=== PATIENT | female | born 1960 | race Caucasian/White ===

== ENCOUNTER → 2017-04-15 | Outpatient (REF) | payer BC ==
[2017-04-15 20:55] LABS: C REACTIVE PROTEIN QUANTITATIV 0.43 MG/DL (0.00-0.30); RHEUMATOID FACTOR QUANT < 10.0 IU/ML (0-15.0)
[2017-04-15 21:04] LABS: FOLATE 12.1 NG/ML; TOTAL 25(OH) VITAMIN D 20.2 NG/ML (30.0-100.0); VITAMIN B12 LEVEL 363 PG/ML
[2017-04-15 22:24] LABS: ERYTHROCYTE SEDIMENTATION RATE 21 mm/hr (0-30)
[2017-04-18 00:09] LABS: ANA (HEP2) Negative (.); Lyme Disease IgG/IgM Antibodie <0.91 ISR (0.00-0.90); Lyme Disease IgM Ab Quantitati <0.80 index (0.00-0.79)
== END ==
LOC: M SFHCADAM 14:40
DX: M25.552 Pain in left hip (principal); M79.675 Pain in left toe(s); G25.81 Restless legs syndrome
CPT/HCPCS: 82746

== ENCOUNTER → 2017-05-07 | Outpatient (REF) | payer BC ==
[2017-05-07 12:46] LABS: HEMATOCRIT 42.9 % (36.0-47.0); HEMOGLOBIN 14.1 g/dl (12.0-16.0); MEAN CORPUSCULAR HEMOGLOBIN 28.7 pg (27.0-33.0); MEAN CORPUSCULAR HGB CONC 32.9 g/dl (32.0-36.5); MEAN CORPUSCULAR VOLUME 87.4 fl (80.0-96.0); PLATELET COUNT, AUTOMATED 285 10^3/uL (150-450); RED BLOOD COUNT 4.91 10^6/uL (4.00-5.40); RED CELL DISTRIBUTION WIDTH 13.4 % (11.5-14.5); WHITE BLOOD COUNT 7.7 10^3/uL (4.0-10.0)
[2017-05-07 13:16] LABS: ALBUMIN 3.6 GM/DL (3.2-5.2); ALBUMIN/GLOBULIN RATIO 1.06 (1.00-1.93); ALKALINE PHOSPHATASE 65 U/L (45-117); ALT/SGPT 20 U/L (12-78); ANION GAP 7 MEQ/L (8-16); AST/SGOT 17 U/L (7-37); BLOOD UREA NITROGEN 11 MG/DL (7-18); CALCIUM LEVEL 8.8 MG/DL (8.5-10.1); CARBON DIOXIDE LEVEL 29 MEQ/L (21-32); CHLORIDE LEVEL 102 MEQ/L (98-107); CHOLESTEROL LEVEL 228 MG/DL (<200); CHOLESTEROL RISK RATIO 3.507 (<5); FREE T4 0.87 NG/DL (0.76-1.46); GLOMERULAR FILTRATION RATE > 60.0 (>51); GLUCOSE, FASTING 94 MG/DL (70-100); HDL CHOLESTEROL 65 MG/DL (>40); LDL CHOLESTEROL 127.4 MG/DL (<100); NON-HDL-C 163 MG/DL; POTASSIUM SERUM 4.7 MEQ/L (3.5-5.1); SODIUM LEVEL 138 MEQ/L (136-145); TRIGLYCERIDES LEVEL 178 MG/DL (<150)
== END ==
LOC: M SFHCADAM 08:07
DX: E66.9 Obesity, unspecified (principal); Z13.220 Encounter for screening for lipoid disorders; Z13.1 Encounter for screening for diabetes mellitus
CPT/HCPCS: 84443

== ENCOUNTER → 2017-06-03 | Outpatient (CLI) | payer BC | LOC: M ADAMS 16:35 | DX: M54.5 Low back pain (principal); G89.29 Other chronic pain | CPT/HCPCS: 72100 ==

== ENCOUNTER 2017-08-07 18:33 | Emergency (ER) | payer BC ==
[2017-08-07] MEDS ORDERED: ISOVUE-370 76% 100ML VIAL (Q9967) As Ordered (19:15)
[2017-08-07 20:04] LABS: INR 0.87; PROTHROMBIN TIME 11.9 SECONDS (12.4-14.5)
[2017-08-07 20:17] LABS: CPK CREATINE PHOSPHOKINASE 100 U/L (26-192); TROPONIN I < 0.02 NG/ML (< 0.10)
[2017-08-07 20:18] LABS: CK-MB VALUE MASS 1.2 NG/ML (<3.6); NT-PRO BNP 142 PG/ML (<125)
== END 2017-08-07 20:53 | disposition home or self-care (01) ==
LOC: M ED 18:33
DX: R06.00 Dyspnea, unspecified (principal); R60.9 Edema, unspecified; J45.909 Unspecified asthma, uncomplicated; Z79.899 Other long term (current) drug therapy; Z88.5 Allergy status to narcotic agent; Z88.8 Allergy status to other drugs, medicaments and biological substances
CPT/HCPCS: Q9967

== ENCOUNTER → 2017-08-07 | Outpatient (CLI) | payer BC | LOC: M ADAMS 09:13 | DX: R60.0 Localized edema (principal); I83.893 Varicose veins of bilateral lower extremities with other complications | CPT/HCPCS: 71046 ==

== ENCOUNTER → 2017-08-07 | Outpatient (REF) | payer BC ==
[2017-08-07 10:29] LABS: HEMOGLOBIN 13.2 g/dl (12.0-15.5); MEAN CORPUSCULAR HEMOGLOBIN 29.6 pg (27.0-33.0); MEAN CORPUSCULAR HGB CONC 33.8 g/dl (32.0-36.5); MEAN CORPUSCULAR VOLUME 87.4 fl (80.0-96.0); PLATELET COUNT, AUTOMATED 248 10^3/uL (150-450); RED BLOOD COUNT 4.46 10^6/uL (4.00-5.40); RED CELL DISTRIBUTION WIDTH 13.7 % (11.5-14.5); WHITE BLOOD COUNT 8.1 10^3/uL (4.0-10.0)
[2017-08-07 10:41] LABS: D-DIMER QUANT 746.7 ng/ml (<500)
[2017-08-07 10:57] LABS: ALBUMIN 3.5 GM/DL (3.2-5.2); ALBUMIN/GLOBULIN RATIO 0.95 (1.00-1.93); ALKALINE PHOSPHATASE 67 U/L (45-117); ALT/SGPT 24 U/L (12-78); ANION GAP 7 MEQ/L (8-16); AST/SGOT 21 U/L (7-37); BILIRUBIN,TOTAL 0.6 MG/DL (0.2-1.0); BLOOD UREA NITROGEN 9 MG/DL (7-18); CALCIUM LEVEL 8.6 MG/DL (8.5-10.1); CARBON DIOXIDE LEVEL 27 MEQ/L (21-32); CHLORIDE LEVEL 106 MEQ/L (98-107); CPK CREATINE PHOSPHOKINASE 103 U/L (26-192); CREATININE FOR GFR 0.68 MG/DL (0.55-1.30); FREE T4 0.92 NG/DL (0.76-1.46); GLOMERULAR FILTRATION RATE > 60.0 (>51); GLUCOSE, FASTING 86 MG/DL (70-100); POTASSIUM SERUM 4.2 MEQ/L (3.5-5.1); SODIUM LEVEL 140 MEQ/L (136-145); TOTAL PROTEIN 7.2 GM/DL (6.4-8.2); TROPONIN I < 0.02 NG/ML (< 0.10)
[2017-08-07 11:03] LABS: NT-PRO BNP 160 PG/ML (<125)
== END ==
LOC: M SFHCADAM 09:09
DX: R60.0 Localized edema (principal); I83.893 Varicose veins of bilateral lower extremities with other complications; R06.09 Other forms of dyspnea
CPT/HCPCS: 82550

== ENCOUNTER → 2017-08-14 | Outpatient (CLI) | payer BC | LOC: M CARPUL 11:18 | DX: R60.0 Localized edema (principal); R06.09 Other forms of dyspnea | CPT/HCPCS: 93306 ==

== ENCOUNTER 2017-09-01 11:18 | Day surgery (SDC) | payer BC ==
[2017-09-01] MEDS ORDERED: fentaNYL 100 MCG/2 ML INJECTION (J3010) As Ordered (11:24)
[2017-09-01] MEDS ORDERED: PROPOFOL 200 MG/20 ML VIAL As Ordered (11:24)
[2017-09-01] MEDS ORDERED: LIDOCAINE 2% INJ 100 MG/5 ML SDV (FOR ANES.) As Ordered (11:24)
[2017-09-01] MEDS: NS 1,000 ML IV (11:33)
[2017-09-01] MEDS ORDERED: SEVOFLURANE INHAL SOLN 250 ML BTL As Ordered (15:27)
== END 2017-09-01 13:27 | disposition home or self-care (01) ==
LOC: M OPP 11:18
DX: K21.0 Gastro-esophageal reflux disease with esophagitis (principal); K22.8 Other specified diseases of esophagus; K29.70 Gastritis, unspecified, without bleeding; J45.909 Unspecified asthma, uncomplicated; Z79.899 Other long term (current) drug therapy; Z88.8 Allergy status to other drugs, medicaments and biological substances; Z98.51 Tubal ligation status; Z86.79 Personal history of other diseases of the circulatory system; Z80.3 Family history of malignant neoplasm of breast
CPT/HCPCS: 43239

== ENCOUNTER 2017-09-17 06:51 | Day surgery (SDC) | payer BC ==
[2017-09-17] MEDS ORDERED: LIDOCAINE 1% MDV 20ML VIAL SQ (07:30)
[2017-09-17] MEDS: LR 1,000 ML IV (08:00)
[2017-09-17] MEDS ORDERED: MIDAZOLAM INJ 2 MG/2 ML VIAL (J2250) As Ordered (08:13)
[2017-09-17] MEDS ORDERED: fentaNYL 100 MCG/2 ML INJECTION (J3010) As Ordered (08:13)
[2017-09-17] MEDS ORDERED: PROPOFOL 200 MG/20 ML VIAL As Ordered ×3 (08:14)
[2017-09-17] MEDS: dexameTHASONE 4 MG/ML 1ML VIAL (J1100) As Ordered (08:19)
[2017-09-17] MEDS: BUPIVACAINE HCL 0.25% 30 ML VIAL As Ordered (08:19)
[2017-09-17] MEDS ORDERED: ONDANSETRON 4MG/2ML VIAL (J2405) As Ordered (08:20)
[2017-09-17] MEDS ORDERED: METOCLOPRAMIDE INJ 10MG/2ML VIAL (J2765) As Ordered (08:20)
[2017-09-17] MEDS ORDERED: dexameTHASONE 4 MG/ML 1ML VIAL (J1100) As Ordered (08:20)
[2017-09-17] MEDS ORDERED: KETAMINE HCL 200 MG/20 ML VIAL As Ordered (09:18)
[2017-09-17] MEDS: LIDOCAINE 1% SDV INJ 30 ML VIAL As Ordered (09:33)
[2017-09-17] MEDS: BUPIVACAINE HCL 0.5% 30 ML VIAL As Ordered (09:33)
== END 2017-09-17 11:30 | disposition home or self-care (01) ==
LOC: M SDC 06:51
DX: M20.22 Hallux rigidus, left foot (principal); K44.9 Diaphragmatic hernia without obstruction or gangrene; J45.909 Unspecified asthma, uncomplicated; Z79.899 Other long term (current) drug therapy; Z88.8 Allergy status to other drugs, medicaments and biological substances
CPT/HCPCS: 28289

== ENCOUNTER 2018-02-14 04:04 | Emergency (ER) | payer BC ==
[2018-02-14] MEDS: ONDANSETRON 4MG/2ML VIAL (J2405) IV (05:30)
[2018-02-14] MEDS: KETOROLAC 30 MG/ML VIAL (J1885) IV (05:30)
[2018-02-14] MEDS: METHOCARBAMOL 1,000 MG/10 ML VIAL (J2800) IV (05:30)
[2018-02-14] MEDS: MORPHINE 4 MG/ML 1ML VIAL/SYRINGE (J2270) IV (05:31)
[2018-02-14] MEDS: OXYCODONE/APAP 5MG/325MG(BULK FOR ED) 1 TABLET PO (06:24)
== END 2018-02-14 06:28 | disposition home or self-care (01) ==
LOC: M ED 04:04
DX: M54.2 Cervicalgia (principal); S46.812A Strain of other muscles, fascia and tendons at shoulder and upper arm level, left arm, initial encounter; X58.XXXA Exposure to other specified factors, initial encounter; Y92.89 Other specified places as the place of occurrence of the external cause; Z79.899 Other long term (current) drug therapy; Z88.3 Allergy status to other anti-infective agents
CPT/HCPCS: J2270

== ENCOUNTER 2018-02-20 09:28 | Day surgery (SDC) | payer BC ==
[2018-02-20] MEDS: NS 1,000 ML IV (10:51)
[2018-02-20] MEDS ORDERED: LIDOCAINE 2% INJ 100 MG/5 ML SDV (FOR ANES.) As Ordered (11:00)
[2018-02-20] MEDS ORDERED: PROPOFOL 200 MG/20 ML VIAL As Ordered ×2 (11:00)
[2018-02-20] MEDS ORDERED: fentaNYL 100 MCG/2 ML INJECTION (J3010) As Ordered (12:13)
== END 2018-02-20 13:33 | disposition home or self-care (01) ==
LOC: M OPP 09:28
DX: K21.0 Gastro-esophageal reflux disease with esophagitis (principal); K22.8 Other specified diseases of esophagus; K29.70 Gastritis, unspecified, without bleeding; J45.909 Unspecified asthma, uncomplicated; R12 Heartburn; M19.90 Unspecified osteoarthritis, unspecified site; Z98.890 Other specified postprocedural states; Z79.899 Other long term (current) drug therapy; Z88.5 Allergy status to narcotic agent; Z88.8 Allergy status to other drugs, medicaments and biological substances; Z88.1 Allergy status to other antibiotic agents; Z80.3 Family history of malignant neoplasm of breast
CPT/HCPCS: 91035

== ENCOUNTER → 2018-08-27 | Outpatient (REF) | payer BC ==
[~2018-08-27] MED LIST: ALBU0.63; CYCL10TA PO; HYDR-3713 PO; KETO10TAB PO; OMEP40CA2; OXYC1TAB23 PO; PANT40TA3 PO; ROBA500T PO; ROPI0.5T; SUMA25TA3; TIZA4CAP PO; VALA1TAB2; VITA50005
[2018-08-27 12:47] LABS: HEMATOCRIT 46.5 % (36.0-47.0); HEMOGLOBIN 15.3 g/dl (12.0-15.5); MEAN CORPUSCULAR HEMOGLOBIN 29.7 pg (27.0-33.0); MEAN CORPUSCULAR HGB CONC 32.9 g/dl (32.0-36.5); MEAN CORPUSCULAR VOLUME 90.3 fl (80.0-96.0); PLATELET COUNT, AUTOMATED 278 10^3/uL (150-450); RED BLOOD COUNT 5.15 10^6/uL (4.00-5.40); WHITE BLOOD COUNT 7.5 10^3/uL (4.0-10.0)
[2018-08-27 12:50] LABS: ALBUMIN 3.8 GM/DL (3.2-5.2); ALT/SGPT 28 U/L (12-78); BILIRUBIN,TOTAL 0.9 MG/DL (0.2-1.0); BLOOD UREA NITROGEN 15 MG/DL (7-18); CALCIUM LEVEL 8.7 MG/DL (8.5-10.1); CARBON DIOXIDE LEVEL 30 MEQ/L (21-32); CHLORIDE LEVEL 103 MEQ/L (98-107); CHOLESTEROL LEVEL 292 MG/DL (<200); CHOLESTEROL RISK RATIO 4.949 (<5); CREATININE FOR GFR 0.76 MG/DL (0.55-1.30); FREE T4 0.91 NG/DL (0.76-1.46); GLOMERULAR FILTRATION RATE > 60.0 (>51); GLUCOSE, FASTING 96 MG/DL (70-100); HDL CHOLESTEROL 59 MG/DL (>40); LDL CHOLESTEROL 174 MG/DL (<100); NON-HDL-C 233 MG/DL; POTASSIUM SERUM 4.8 MEQ/L (3.5-5.1); SODIUM LEVEL 138 MEQ/L (136-145); TOTAL PROTEIN 7.4 GM/DL (6.4-8.2); TRIGLYCERIDES LEVEL 296 MG/DL (<150)
== END ==
LOC: M SFHCADAM 10:01
PROVIDERS: ATTEND Physician Assistant
DX: E78.5 Hyperlipidemia, unspecified (principal); G25.81 Restless legs syndrome; K21.9 Gastro-esophageal reflux disease without esophagitis; J45.20 Mild intermittent asthma, uncomplicated

== ENCOUNTER 2018-10-29 14:25 | Emergency (ER) | payer BC ==
[~2018-10-29] VITALS: Ht 160 cm; Wt 93.6 kg
[2018-10-29] MEDS ORDERED: AZIT-12 (14:51)
[2018-10-29] MEDS ORDERED: PROM25TA12 (14:51)
[2018-10-29] MEDS ORDERED: CEFU1TAB22 (14:51)
[2018-10-29] MEDS ORDERED: IPRATROPIUM 0.5MG/ALBUTEROL 2.5MG INH SOL UD 3ML (DUONEB)(J7620) NEB ONE (16:30)
--- NOTE | 2018-10-29 16:57 | REP ---
CHEST, TWO VIEWS: HISTORY: Cough. COMPARISON: 08/07/2017 The lungs are clear. The heart is normal in size. The pulmonary vasculature is normal in appearance. The bony structure is intact. IMPRESSION: No acute disease. Electronically Signed by Adelso Cha MD 10/29/2018 05:35 P
[2018-10-29] MEDS ORDERED: IPRA0.00 NEB (17:31)
[2018-10-29] MEDS ORDERED: HYDR5LIQ2 PO (17:31)
[2018-10-29] MEDS ORDERED: MUCI600T31 PO (17:31)
[2018-10-29 18:06] VITALS: BP 142/89
== END 2018-10-29 18:08 | disposition home or self-care (01) ==
LOC: M ED 14:25
DX: J45.901 Unspecified asthma with (acute) exacerbation (principal); K21.9 Gastro-esophageal reflux disease without esophagitis; Z88.5 Allergy status to narcotic agent; Z88.3 Allergy status to other anti-infective agents; Z79.899 Other long term (current) drug therapy; Z79.2 Long term (current) use of antibiotics

== ENCOUNTER → 2019-04-22 | Outpatient (REF) | payer BC, OTHER ==
[~2019-04-22] MED LIST changes: +AZIT-12; +CEFU1TAB22; +HYDR5LIQ2 PO; +IPRA0.00 NEB; +MUCI600T31 PO; -OMEP40CA2; +OMEP40CA97; +PROM25TA12; -ROPI0.5T; +ROPI0.5T3; -VALA1TAB2; +VALA1TAB5
[2019-04-22 13:34] LABS: HEMATOCRIT 44.6 % (36.0-47.0); HEMOGLOBIN 14.7 g/dl (12.0-15.5); MEAN CORPUSCULAR HEMOGLOBIN 29.1 pg (27.0-33.0); MEAN CORPUSCULAR VOLUME 88.3 fl (80.0-96.0); PLATELET COUNT, AUTOMATED 318 10^3/uL (150-450); RED BLOOD COUNT 5.05 10^6/uL (4.00-5.40); WHITE BLOOD COUNT 5.7 10^3/uL (4.0-10.0)
[2019-04-22 13:37] LABS: C REACTIVE PROTEIN QUANTITATIV 0.32 MG/DL (0.00-0.30); RHEUMATOID FACTOR QUANT < 10.0 IU/ML (<15.0)
[2019-04-22 13:47] LABS: ALBUMIN 3.9 GM/DL (3.2-5.2); ALT/SGPT 20 U/L (12-78); BILIRUBIN,TOTAL 0.6 MG/DL (0.2-1.0); BLOOD UREA NITROGEN 10 MG/DL (7-18); CARBON DIOXIDE LEVEL 31 MEQ/L (21-32); CHLORIDE LEVEL 104 MEQ/L (98-107); CREATININE FOR GFR 0.75 MG/DL (0.55-1.30); GLOMERULAR FILTRATION RATE > 60.0 (>51); GLUCOSE, FASTING 89 MG/DL (70-100); POTASSIUM SERUM 4.6 MEQ/L (3.5-5.1); SODIUM LEVEL 139 MEQ/L (136-145); TOTAL PROTEIN 7.4 GM/DL (6.4-8.2)
[2019-04-22 13:48] LABS: FOLATE 13.8 NG/ML; TOTAL 25(OH) VITAMIN D 19.8 NG/ML (30.0-100.0); VITAMIN B12 LEVEL 342 PG/ML
[2019-04-24 00:06] LABS: ANA (HEP2) Negative (.); Lyme Disease IgG/IgM Antibodie <0.91 ISR (0.00-0.90); Lyme Disease IgM Ab Quantitati <0.80 index (0.00-0.79)
== END ==
LOC: M SFHCADAM 08:57
PROVIDERS: ATTEND Physician Assistant
DX: M13.0 Polyarthritis, unspecified (principal); M25.561 Pain in right knee

== ENCOUNTER → 2019-04-22 | Outpatient (CLI) | payer OTHER ==
[~2019-04-22] MED LIST changes: +ROPI0.5T; -ROPI0.5T3; -VALA1TAB5; +VALA1TAB64
--- NOTE | 2019-04-23 02:14 | REP ---
Clinical: Medial knee pain without trauma Technique: AP, lateral, bilateral oblique and sunrise views right knee . Findings: The osseous structures and joint spaces are intact and normal. There is no evidence for acute fracture or dislocation. No joint effusion is appreciated. Surrounding soft tissues are unremarkable. No subcutaneous emphysema or radiodense foreign body. Impression: Normal examination. No acute fracture or dislocation. Electronically Signed by Steven Jonas MD 04/23/2019 02:05 A
== END ==
LOC: M ADAMS 09:22
PROVIDERS: ATTEND Physician Assistant
DX: M25.561 Pain in right knee (principal)

== ENCOUNTER → 2019-05-25 | Outpatient (REF) | payer BC, OTHER ==
[~2019-05-25] MED LIST changes: -ROPI0.5T; +ROPI0.5T3; +VALA1TAB5; -VALA1TAB64
== END ==
LOC: M SFHCADAM 09:35
PROVIDERS: ATTEND Physician Assistant
DX: R39.15 Urgency of urination (principal)

== ENCOUNTER → 2019-09-06 | Outpatient (REF) | payer BC ==
[~2019-09-06] MED LIST changes: +CYCL-707 PO; -CYCL10TA PO; +PANT40TA29 PO; -PANT40TA3 PO
[2019-09-06 18:43] LABS: APPEARANCE, URINE CLEAR (CLEAR); BACTERIA, URINE AUTO NEGATIVE (NEGATIVE); BILIRUBIN, URINE AUTO NEGATIVE (NEGATIVE); BLOOD, URINE BLOOD NEGATIVE (NEGATIVE); COLOR, URINE YELLOW (YELLOW); GLUCOSE, URINE (UA) AUTO NEGATIVE (NEGATIVE); KETONE, URINE AUTO NEGATIVE (NEGATIVE); LEUKOCYTE ESTERASE, URINE AUTO NEGATIVE (NEGATIVE); NITRITE, URINE AUTO NEGATIVE (NEGATIVE); PROTEIN, URINE AUTO NEGATIVE (NEGATIVE); RBC, URINE AUTO 1 /HPF (0-3); SPECIFIC GRAVITY URINE AUTO 1.013 (1.002-1.035); SQUAMOUS EPITHELIAL CELL UR AU 0 /HPF (0-6); UROBILINOGEN, URINE AUTO 0.2 mg/dL (0.0-2.0); WBC, URINE AUTO 1 /HPF (0-3)
== END ==
LOC: M SMT 16:43
PROVIDERS: ATTEND Nurse Practitioner Women's Health
DX: R39.15 Urgency of urination (principal)

== ENCOUNTER → 2019-09-13 | Outpatient (CLI) | payer BC ==
--- NOTE | 2019-09-13 17:12 | REP ---
RENAL AND BLADDER ULTRASOUND: RENAL ULTRASOUND: Real-time sonographic evaluation of the kidneys performed. The kidneys are normal in size and echotexture, right kidney measures 1.2 x 4.8 x 4.6 cm and the left kidney 11.4 x 4.5 x 6.2 cm. There is no hydronephrosis bilaterally. There is a cyst in the upper pole of the right kidney 2.1 x 2.4 x 2.6 cm. With duplex Doppler evaluation the resistive index of the right kidney is 0.65 and left kidney 0.61. IMPRESSION: Cyst upper pole of the right kidney 2.6 cm maximally. No hydronephrosis. BLADDER ULTRASOUND: Real-time sonographic evaluation of the urinary bladder performed. Bladder measures 14.1 x 9.4 x 5.9 cm for a total volume of 510 mL. There is mild postvoid residual of 19 mL. No bladder mass or calculus is seen. There are bilateral ureteral jets in the urinary bladder with Doppler color evaluation. IMPRESSION: Unremarkable bladder ultrasound except for minimal post void residual.
== END ==
LOC: M WHC 13:29
PROVIDERS: ATTEND Nurse Practitioner Women's Health
DX: R39.15 Urgency of urination (principal); R35.0 Frequency of micturition; N39.0 Urinary tract infection, site not specified; N28.1 Cyst of kidney, acquired

== ENCOUNTER → 2020-06-16 | Outpatient (REF) | payer BC ==
[2020-06-16 12:35] LABS: HEMATOCRIT 42.7 % (36.0-47.0); HEMOGLOBIN 14.1 g/dl (12.0-15.5); MEAN CORPUSCULAR HEMOGLOBIN 29.3 pg (27.0-33.0); MEAN CORPUSCULAR VOLUME 88.8 fl (80.0-96.0); PLATELET COUNT, AUTOMATED 253 10^3/uL (150-450); RED BLOOD COUNT 4.81 10^6/uL (4.00-5.40); WHITE BLOOD COUNT 5.9 10^3/uL (4.0-10.0)
[2020-06-16 12:58] LABS: ALBUMIN 3.9 GM/DL (3.2-5.2); ALT/SGPT 30 U/L (12-78); BILIRUBIN,TOTAL 0.5 MG/DL (0.2-1.0); BLOOD UREA NITROGEN 11 MG/DL (7-18); CALCIUM LEVEL 9.1 MG/DL (8.5-10.1); CARBON DIOXIDE LEVEL 30 MEQ/L (21-32); CHLORIDE LEVEL 103 MEQ/L (98-107); CHOLESTEROL LEVEL 261 MG/DL (<200); CHOLESTEROL RISK RATIO 3.782 (<5); CREATININE FOR GFR 0.74 MG/DL (0.55-1.30); FREE T4 0.94 NG/DL (0.76-1.46); GLOMERULAR FILTRATION RATE > 60.0 (>51); GLUCOSE, FASTING 106 MG/DL (70-100); HDL CHOLESTEROL 69 MG/DL (>40); LDL CHOLESTEROL 148 MG/DL (<100); MAGNESIUM LEVEL 2.1 MG/DL (1.8-2.4); NON-HDL-C 192 MG/DL; POTASSIUM SERUM 4.4 MEQ/L (3.5-5.1); SODIUM LEVEL 139 MEQ/L (136-145); TOTAL PROTEIN 7.2 GM/DL (6.4-8.2); TRIGLYCERIDES LEVEL 220 MG/DL (<150)
[2020-06-16 12:59] LABS: VITAMIN B12 LEVEL 385 PG/ML
[2020-06-16 13:13] LABS: FOLATE > 24.0 NG/ML
== END ==
LOC: M SFHCADAM 09:39
PROVIDERS: ATTEND Physician Assistant
DX: K21.9 Gastro-esophageal reflux disease without esophagitis (principal); E78.00 Pure hypercholesterolemia, unspecified; M79.605 Pain in left leg

== ENCOUNTER → 2020-07-12 | Outpatient (REF) | payer BC | LOC: M LAB REF 17:10 | PROVIDERS: ATTEND Physician Assistant | DX: D49.2 Neoplasm of unspecified behavior of bone, soft tissue, and skin (principal) ==

== ENCOUNTER → 2020-08-01 | Outpatient (REF) | payer BC | LOC: M LAB REF 16:07 | PROVIDERS: ATTEND Dermatology | DX: D22.61 Melanocytic nevi of right upper limb, including shoulder (principal) ==

== ENCOUNTER 2021-03-08 08:33 | Emergency (ER) | payer BC ==
[~2021-03-08] VITALS: Ht 160 cm; Wt 98.7 kg
[~2021-03-08 08:33] MED LIST changes: +OMEP40CA4; -OMEP40CA97
[2021-03-08] MEDS ORDERED: MELO7.5T35 (08:42)
[2021-03-08] MEDS ORDERED: predniSONE 20 MG TAB PO ONE (08:55)
--- NOTE | 2021-03-08 09:16 | REP ---
INDICATION: sob. COMPARISON: 10/29/2018 THE LATEST PRIOR TECHNIQUE: PORTABLE FINDINGS: The technique utilized in obtaining the radiograph has magnified the cardiac silhouette and accentuated the interstitial markings. The cardiomediastinal silhouette is within normal limits. The heart is not enlarged. Lung ivy are clear. The pleural angles are sharp. The osseous structures are stable and intact. IMPRESSION: No acute cardiopulmonary disease. <Electronically signed by David Walsh > 03/08/21 [id number]
[2021-03-08] MEDS ORDERED: PRED20TA PO (10:09)
[2021-03-08] MEDS ORDERED: HYDR-3713 PO (10:09)
[2021-03-08 11:03] VITALS: BP 153/86
--- NOTE | 2021-03-08 16:45 | ECGEPIP ---
[facility] - ED Test Date: 2021-03-08 Pat Name: QUYEN DOBBINS Department: Room: - Gender: Female Billing Services Manager: MARYBETH : 1960 Requested By: Edna Leahy Order Number: [id number] Reading MD: Ron Linder Measurements Intervals [place] Rate: 79 P: 22 DE: 162 QRS: -23 QRSD: 82 T: 54 QT: 404 QTc: 463 Interpretive Statements Normal sinus rhythm POOR R WAVE PROGRESSION NO PRIORS FOR COMPARISON Electronically Signed on 03-08-2021 16:44:41 EST by Ron Linder
== END 2021-03-08 11:31 | disposition home or self-care (01) ==
LOC: M ED 08:33
DX: J45.901 Unspecified asthma with (acute) exacerbation (principal); B34.1 Enterovirus infection, unspecified; Z88.1 Allergy status to other antibiotic agents; Z88.5 Allergy status to narcotic agent; Z88.8 Allergy status to other drugs, medicaments and biological substances
CPT/HCPCS: 71045; 87798; 93005; 99284; J7512

== ENCOUNTER 2021-03-21 17:04 | Emergency (ER) | payer BC ==
[~2021-03-21] VITALS: Ht 160 cm; Wt 98.2 kg
[~2021-03-21 17:04] MED LIST changes: +MELO7.5T35; +PRED20TA PO
[2021-03-21 17:05] VITALS: BP 163/77
== END 2021-03-21 18:24 | disposition left against medical advice (07) ==
LOC: M ED 17:04
DX: Z53.29 Procedure and treatment not carried out because of patient's decision for other reasons (principal)

== ENCOUNTER → 2021-08-02 | Outpatient (CLI) | payer BC ==
[2021-08-02 13:56] LABS: HEMATOCRIT 44.8 % (36.0-47.0); HEMOGLOBIN 14.6 g/dl (12.0-15.5); MEAN CORPUSCULAR HGB CONC 32.6 g/dl (32.0-36.5); MEAN CORPUSCULAR VOLUME 88.9 fl (80.0-96.0); PLATELET COUNT, AUTOMATED 241 10^3/uL (150-450); RED BLOOD COUNT 5.04 10^6/uL (4.00-5.40); WHITE BLOOD COUNT 7.8 10^3/uL (4.0-10.0)
[2021-08-02 14:24] LABS: ALBUMIN 3.5 GM/DL (3.2-5.2); ALT/SGPT 25 U/L (12-78); BILIRUBIN,TOTAL 0.7 MG/DL (0.2-1.0); BLOOD UREA NITROGEN 13 MG/DL (7-18); CALCIUM LEVEL 9.2 MG/DL (8.5-10.1); CARBON DIOXIDE LEVEL 30 MEQ/L (21-32); CHLORIDE LEVEL 104 MEQ/L (98-107); CHOLESTEROL LEVEL 293 MG/DL (<200); CREATININE FOR GFR 0.81 MG/DL (0.55-1.30); GLOMERULAR FILTRATION RATE > 60.0 (>51); GLUCOSE, FASTING 100 MG/DL (70-100); HDL CHOLESTEROL 63 MG/DL (>40); LDL CHOLESTEROL 162 MG/DL (<100); NON-HDL-C 230 MG/DL; POTASSIUM SERUM 4.9 MEQ/L (3.5-5.1); SODIUM LEVEL 138 MEQ/L (136-145); TRIGLYCERIDES LEVEL 338 MG/DL (<150)
== END ==
LOC: M PLALAB 10:48
PROVIDERS: ATTEND Family Medicine
DX: E78.00 Pure hypercholesterolemia, unspecified (principal)

== ENCOUNTER → 2021-08-14 | Outpatient (POV) | payer BC ==
[~2021-08-14] VITALS: Ht 160 cm; Wt 100.0 kg
[2021-08-14 08:00] VITALS: BP 140/78
== END ==
LOC: M IRPOV 07:52
PROVIDERS: ATTEND Radiology Diagnostic Radiology
DX: I83.893 Varicose veins of bilateral lower extremities with other complications (principal); Z88.1 Allergy status to other antibiotic agents; Z88.5 Allergy status to narcotic agent

== ENCOUNTER → 2021-08-31 | Outpatient (CLI) | payer BC | LOC: M RAD 11:16 | PROVIDERS: ATTEND Radiology Diagnostic Radiology | DX: I83.90 Asymptomatic varicose veins of unspecified lower extremity (principal) ==

== ENCOUNTER → 2022-01-29 | Outpatient (CLI) | payer BC | LOC: M WHC 06:57 | PROVIDERS: ATTEND Family Medicine | DX: Z12.31 Encounter for screening mammogram for malignant neoplasm of breast (principal) ==

== ENCOUNTER → 2022-02-03 | Outpatient (CLI) | payer BC | LOC: M LABSMTC 10:51 | PROVIDERS: ATTEND Anesthesiology | DX: Z11.52 Encounter for screening for COVID-19 (principal) ==

== ENCOUNTER → 2022-02-07 | Outpatient (CLI) | payer BC ==
[~2022-02-07] MED LIST changes: +LIDOCAINE 1% MDV 20ML VIAL As Ordered ONE; +LIDOCAINE 2% MDV 20ML VIAL As Ordered ONE; +MIDAZOLAM INJ 2MG/2ML VIAL (J2250 PER 1MG) As Ordered ONE; +NS 1,000 ML IV SCH; +diphenhydrAMINE 50MG/ML VIAL As Ordered ONE; +fentaNYL 100 MCG/2 ML INJECTION As Ordered ONE
[2022-02-07 12:15] VITALS: BP 114/50
== END ==
LOC: M IRPRO 09:32
PROVIDERS: ATTEND Radiology Diagnostic Radiology
DX: I83.811 Varicose veins of right lower extremity with pain (principal); I83.891 Varicose veins of right lower extremity with other complications; I87.2 Venous insufficiency (chronic) (peripheral)
CPT/HCPCS: 36465; 99152; 99153; J1200; J2250; J3010

== ENCOUNTER 2022-02-20 10:47 | Emergency (ER) | payer BC ==
[~2022-02-20] VITALS: Ht 160 cm; Wt 88.1 kg
[2022-02-20 10:47] VITALS: BP 148/74
== END 2022-02-20 13:56 | disposition left against medical advice (07) ==
LOC: M ED 10:47
DX: Z53.21 Procedure and treatment not carried out due to patient leaving prior to being seen by health care provider (principal)

== ENCOUNTER → 2022-02-20 | Outpatient (CLI) | payer BC ==
[~2022-02-20] MED LIST changes: -LIDOCAINE 1% MDV 20ML VIAL As Ordered ONE; -LIDOCAINE 2% MDV 20ML VIAL As Ordered ONE; -MIDAZOLAM INJ 2MG/2ML VIAL (J2250 PER 1MG) As Ordered ONE; -NS 1,000 ML IV SCH; -diphenhydrAMINE 50MG/ML VIAL As Ordered ONE; -fentaNYL 100 MCG/2 ML INJECTION As Ordered ONE
== END ==
LOC: M RAD 10:02
PROVIDERS: ATTEND Radiology Diagnostic Radiology
DX: I87.8 Other specified disorders of veins (principal)

== ENCOUNTER → 2022-02-26 | Outpatient (POV) | payer BC ==
[~2022-02-26] VITALS: Ht 160 cm; Wt 88.6 kg
[2022-02-26 13:25] VITALS: BP 136/73
== END ==
LOC: M IRPOV 13:00
PROVIDERS: ATTEND Radiology Diagnostic Radiology
DX: I83.12 Varicose veins of left lower extremity with inflammation (principal); Z88.1 Allergy status to other antibiotic agents; Z88.5 Allergy status to narcotic agent; Z88.8 Allergy status to other drugs, medicaments and biological substances

== ENCOUNTER → 2022-03-29 | Outpatient (CLI) | payer BC | LOC: M RAD 06:22 | PROVIDERS: ATTEND Radiology Diagnostic Radiology | DX: M25.552 Pain in left hip (principal) ==

== ENCOUNTER → 2022-04-02 | Outpatient (POV) | payer BC ==
[~2022-04-02] VITALS: Ht 160 cm; Wt 89.5 kg
[2022-04-02 13:45] VITALS: BP 136/62
== END ==
LOC: M IRPOV 13:41
PROVIDERS: ATTEND Radiology Diagnostic Radiology
DX: Z48.812 Encounter for surgical aftercare following surgery on the circulatory system (principal); Z88.1 Allergy status to other antibiotic agents; Z88.5 Allergy status to narcotic agent

== ENCOUNTER → 2022-04-23 | Outpatient (CLI) | payer BC ==
[2022-04-23 17:22] LABS: BASO % 0.3 % (0.0-1.0); HEMATOCRIT 49.4 % (36.0-47.0); HEMOGLOBIN 15.5 g/dl (12.0-15.5); LYMPH # 1.3 10^3/uL (1.5-5.0); LYMPH % 13.5 % (24.0-44.0); MEAN CORPUSCULAR HEMOGLOBIN 28.7 pg (27.0-33.0); MEAN CORPUSCULAR HGB CONC 31.4 g/dl (32.0-36.5); MEAN CORPUSCULAR VOLUME 91.3 fl (80.0-96.0); MONO # 0.8 10^3/uL (0.0-0.8); MONO % 7.6 % (2.0-8.0); NEUTROPHILS # 7.8 10^3/uL (1.5-8.5); NEUTROPHILS % 78.2 % (36.0-66.0); PLATELET COUNT, AUTOMATED 349 10^3/uL (150-450); RED BLOOD COUNT 5.41 10^6/uL (4.00-5.40)
[2022-04-23 17:24] LABS: ALBUMIN 4.1 G/DL (3.2-5.2); ALKALINE PHOSPHATASE 85 U/L (46-116); ALT/SGPT 25 U/L (7.0-40); AST/SGOT 18 U/L (<34); BILIRUBIN,TOTAL 0.5 MG/DL (0.3-1.2); BLOOD UREA NITROGEN 21 MG/DL (9-23); CALCIUM LEVEL 9.4 MG/DL (8.5-10.1); CARBON DIOXIDE LEVEL 28 MMOL/L (20-31); CHLORIDE LEVEL 100 MMOL/L (98-107); CREATININE FOR GFR 0.69 MG/DL (0.55-1.30); GLOMERULAR FILTRATION RATE > 60.0 (>51); GLUCOSE, FASTING 93 MG/DL (60-100); POTASSIUM SERUM 4.2 MMOL/L (3.5-5.1); SODIUM LEVEL 139 MMOL/L (136-145); TOTAL PROTEIN 7.6 G/DL (5.7-8.2)
== END ==
LOC: M PLALAB 15:30
PROVIDERS: ATTEND Student in an Organized Health Care Education/Training Program
DX: J39.9 Disease of upper respiratory tract, unspecified (principal)

== ENCOUNTER → 2022-05-09 | Outpatient (CLI) | payer BC ==
[2022-05-09 15:33] LABS: BLOOD UREA NITROGEN 14 MG/DL (9-23); CALCIUM LEVEL 9.1 MG/DL (8.5-10.1); CARBON DIOXIDE LEVEL 31 MMOL/L (20-31); CHLORIDE LEVEL 102 MMOL/L (98-107); CREATININE FOR GFR 0.77 MG/DL (0.55-1.30); GLOMERULAR FILTRATION RATE > 60.0 (>51); GLUCOSE, FASTING 93 MG/DL (60-100); POTASSIUM SERUM 4.2 MMOL/L (3.5-5.1); SODIUM LEVEL 139 MMOL/L (136-145)
== END ==
LOC: M PLALAB 13:59
PROVIDERS: ATTEND Family Medicine
DX: G25.81 Restless legs syndrome (principal)

== ENCOUNTER → 2022-07-25 | Outpatient (REF) | payer BC | LOC: M SFHCPLAZ 13:02 | PROVIDERS: ATTEND Physician Assistant | DX: R05.1 Acute cough (principal) ==

== ENCOUNTER → 2022-08-21 | Outpatient (CLI) | payer BC ==
[2022-08-21 13:28] LABS: BASO % 0.7 % (0.0-1.0); EOS # 0.1 10^3/uL (0.0-0.5); EOS % 2.1 % (0.0-3.0); HEMATOCRIT 42.2 % (36.0-47.0); HEMOGLOBIN 13.7 g/dl (12.0-15.5); LYMPH # 1.7 10^3/uL (1.5-5.0); LYMPH % 39.5 % (24.0-44.0); MEAN CORPUSCULAR HEMOGLOBIN 29.7 pg (27.0-33.0); MEAN CORPUSCULAR HGB CONC 32.5 g/dl (32.0-36.5); MEAN CORPUSCULAR VOLUME 91.3 fl (80.0-96.0); MONO # 0.4 10^3/uL (0.0-0.8); MONO % 9.3 % (2.0-8.0); NEUTROPHILS % 48.4 % (36.0-66.0); PLATELET COUNT, AUTOMATED 242 10^3/uL (150-450); RED BLOOD COUNT 4.62 10^6/uL (4.00-5.40); WHITE BLOOD COUNT 4.2 10^3/uL (4.0-10.0)
[2022-08-21 14:02] LABS: ALBUMIN 3.8 G/DL (3.2-5.2); ALKALINE PHOSPHATASE 79 U/L (46-116); ALT/SGPT 23 U/L (7.0-40); AST/SGOT 23 U/L (<34); BLOOD UREA NITROGEN 11 MG/DL (9-23); CALCIUM LEVEL 8.5 MG/DL (8.5-10.1); CARBON DIOXIDE LEVEL 30 MMOL/L (20-31); CHLORIDE LEVEL 104 MMOL/L (98-107); CHOLESTEROL LEVEL 224 MG/DL (<200); CHOLESTEROL RISK RATIO 3.37 (<5); CREATININE FOR GFR 0.75 MG/DL (0.55-1.30); GLOMERULAR FILTRATION RATE > 60.0 (>51); GLUCOSE, FASTING 88 MG/DL (60-100); HDL CHOLESTEROL 66.3 MG/DL (>40); LDL CHOLESTEROL 120.9 MG/DL (<100); MAGNESIUM LEVEL 2.2 MG/DL (1.8-2.4); NON-HDL-C 157.7 MG/DL; POTASSIUM SERUM 4.5 MMOL/L (3.5-5.1); SODIUM LEVEL 140 MMOL/L (136-145); TOTAL 25(OH) VITAMIN D 29.4 NG/ML (20.0-100.0); TOTAL PROTEIN 6.6 G/DL (5.7-8.2); TRIGLYCERIDES LEVEL 184 MG/DL (<150)
== END ==
LOC: M PLALAB 09:59
PROVIDERS: ATTEND Family Medicine
DX: G25.81 Restless legs syndrome (principal)

== ENCOUNTER → 2022-08-27 | Outpatient (REF) | payer BC | LOC: M SFHCPLAZ 16:58 | PROVIDERS: ATTEND Student in an Organized Health Care Education/Training Program | DX: R50.9 Fever, unspecified (principal) ==

== ENCOUNTER → 2022-09-27 | Outpatient (CLI) | payer BC | LOC: M RAD 07:25 | PROVIDERS: ATTEND Student in an Organized Health Care Education/Training Program | DX: R05.9 Cough, unspecified (principal); U09.9 Post COVID-19 condition, unspecified ==